=== PATIENT | male | born 1990 | race Caucasian/White ===

== ENCOUNTER 2025-05-25 17:57 | Emergency (ER) | payer MEDICAID ==
[~2025-05-25] VITALS: Ht 165.1 cm; Wt 73.0 kg
[2025-05-25 18:02] VITALS: TEMP 37; O2SAT 98
[2025-05-25 19:21] VITALS: BP 135/76; PULSE 83; RESP 16; O2SAT 95
== END 2025-05-25 19:50 | disposition home or self-care (01) ==
LOC: ER 17:57
DX: M79.604 Pain in right leg (principal); F20.9 Schizophrenia, unspecified; Z88.0 Allergy status to penicillin
CPT/HCPCS: 99283